=== PATIENT | male | born 1930 | race Caucasian/White ===

== ENCOUNTER → 2016-09-16 | Outpatient (CLI) | payer MEDICARE, OTHER ==
[~2016-09-16] MED LIST: ASPI1TAB69 PO; ASPI81TA82 PO; BISA5TAB PO; CARV3.125 PO; CENTTAB9 PO; COUM5TAB PO; DULC5TAB PO; ENOX120P SQ; GABA300C3 PO; HYDR-3534 PO; LISI2.5T3 PO; LOVA40TA PO; MEVA40TA PO; MISC1CAP PO; MOBI15TA PO; ZOLP10TA3 PO
== END ==
LOC: CLAB 11:00
PROVIDERS: ATTEND Internal Medicine
DX: R06.00 Dyspnea, unspecified (principal)
CPT/HCPCS: 36415; 82565; 84520

== ENCOUNTER 2016-09-19 15:34 | Inpatient (IN) | payer MEDICARE, OTHER ==
[~2016-09-19] VITALS: Ht 185.4 cm; Wt 132.9 kg
[~2016-09-19 15:34] MED LIST changes: -ASPI1TAB69 PO; -CARV3.125 PO; -COUM5TAB PO; -DULC5TAB PO; -ENOX120P SQ; -LISI2.5T3 PO; -LOVA40TA PO
[2016-09-19 15:36] VITALS: BP 165/91; PULSE 88; RESP 24; O2SAT 94
--- NOTE | 2016-09-19 15:58 | PD ---
HPI Chief Complaint: Respiratory Symptoms Time Seen by Provider: 15:55 Travel History International Travel<30 days: No Contact w/Intl Traveler<30days: No Traveled to known affect area: No History of Present Illness HPI 85-year-old male presents to the emergency department stating is here to be admitted for pulmonary embolism. Patient has recently had 2 week history of increased shortness of breath with exertion without pain. Patient has had echocardiogram, as well as stress test with no significant findings. He was then referred to Dr. Kat, the project manager/design manager, who did pulmonary function tests which were again reported unremarkable, and was then scheduled for CTA. Patient had a CT earlier this afternoon at 2:30, and was told to come to the emergency department for admission for PE. Patient currently has no pain, fever , chest pain, palpitations, or other constitutional symptoms. Patient remained short of breath with exertion. He denies cough or wheezing. He denies acute lower extremity edema or cramps. Patient has no known drug allergies. Patient does take aspirin 81 mg daily. PFSH Past Medical History Hx Anticoagulant Therapy: Yes (81mg aspirin) High Cholesterol: Yes Diminished Hearing: No Past Surgical History Body Medical Devices: PERIPHERAL NEUROPATHY Social History Alcohol Use: No Tobacco Use: No Allergies-Medications (Allergen,Severity, Reaction): Coded Allergies: No Known Allergies (Verified , 09/19/16) Reported Meds & Prescriptions Reported Meds & Active Scripts Active Reported Lovastatin 40 Mg Tab 40 Mg PO HS Lortab (Hydrocodone-Acetaminophen) 7.5-325 Mg Tab 1 Tab PO TID PRN Dulcolax DR (Bisacodyl) 5 Mg Tabdr 5 Mg PO DAILY PRN Aspirin 81 Mg Tabdr 81 Mg PO DAILY Review of Systems Except as stated in HPI: all other systems reviewed are Neg General / Constitutional: No: Fever Eyes: No: Visual changes HENT: No: Headaches Cardiovascular: No: Chest Pain or Discomfort Respiratory: Positive: Shortness of Breath (see history present illness.) Gastrointestinal: No: Abdominal Pain Genitourinary: No: Dysuria Musculoskeletal: No: Pain Skin: No Rash Neurologic: No: Weakness Psychiatric: No: Depression Endocrine: No: Polydipsia Hematologic/Lymphatic: No: Easy Bruising Physical Exam Narrative GENERAL: Patient appears in no acute distress. SKIN: Warm and dry. Normal color. Normal turgor. HEAD: Atraumatic. Normocephalic. EYES: Pupils equal and round. No scleral icterus. No injection or drainage. ENT: No nasal bleeding or discharge. Mucous membranes pink and moist. NECK: Trachea midline. No JVD. Supple nontender. CARDIOVASCULAR: Regular rate and rhythm. No murmurs gallops or rubs. RESPIRATORY: No accessory muscle use. Clear to auscultation. Breath sounds equal bilaterally. GASTROINTESTINAL: Abdomen soft, non-tender, nondistended. Hepatic and splenic margins not palpable. MUSCULOSKELETAL: Extremities without clubbing, cyanosis, or edema. No obvious deformities. NEUROLOGICAL: Awake and alert. No obvious cranial nerve deficits. Motor grossly within normal limits. Five out of 5 muscle strength in the arms and legs. Normal speech. PSYCHIATRIC: Appropriate mood and affect; insight and judgment normal. Data Data Last Documented VS Vital Signs Date Time Temp Pulse Resp B/P Pulse Ox O2 Delivery O2 Flow Rate FiO2 09/19/16 16:01 24 95 Nasal Cannula 2 09/19/16 15:48 75 09/19/16 15:36 165/91 Orders Complete Blood Count With Diff (09/19/16 15:58) Comprehensive Metabolic Panel (09/19/16 15:58) Prothrombin Time / Inr (Pt) (09/19/16 15:58) Act Partial Throm Time (Ptt) (09/19/16 15:58) Iv Access Insert/Monitor (09/19/16 15:58) Ecg Monitoring (09/19/16 15:58) Oximetry (09/19/16 15:58) Sodium Chloride 0.9% Flush (Ns Flush) (09/19/16 16:00) Electrocardiogram (09/19/16 15:58) Us Leg Venous Doppler Bilat (09/19/16 16:24) Diet Heart Healthy (09/19/16 Dinner) Admit Order (Ed Use Only) (09/19/16 17:07) Consult Pulmonology (09/19/16 ) Place In Observation (09/19/16 ) Vital Signs (Adult) Q4H (09/19/16 17:07) Activity Oob With Assistance (09/19/16 17:07) Bedside Glucose HOLDEN.AC&HS (09/19/16 17:07) ^ Library Information Technician / Telemetry .CONTINUOUS (09/19/16 17:07) Sodium Chloride 0.9% Flush (Ns Flush) (09/19/16 17:15) Sodium Chloride 0.9% Flush (Ns Flush) (09/19/16 21:00) Acetaminophen (Tylenol) (09/19/16 17:15) Ondansetron Inj (Zofran Inj) (09/19/16 17:15) Prochlorperazine Supp (Compazine Supp) (09/19/16 17:15) Bisacodyl Supp (Dulcolax Supp) (09/19/16 17:15) Magnesium Hydroxide Liq (Milk Of Magnesi (09/19/16 17:15) Sennosides (Senokot) (09/19/16 17:15) Basic Metabolic Panel (Bmp) (09/20/16 06:00) Complete Blood Count With Diff (09/20/16 06:00) Resp Oxygen [place] C Titrat 1-4 L (09/19/16 ) Pt Request For Service (09/19/16 17:07) Case Management Consult (09/19/16 17:07) MDM Medical Decision Making Medical Screen Exam Complete: Yes Emergency Medical Condition: Yes Differential Diagnosis Exertional dyspnea. Short of breath. Pulmonary embolism. Narrative Course Patient is medically stable upon exam. Call was placed to Dr. Kat, the project manager/design manager. 1420 hrs. call was returned by Dr. Kat, the patient was discussed. Labs ordered as requested. Rectal guaiac is negative. Dr. Kat would like the patient admitted, and have Dopplers done on both lower extremities as well as plans for 2-D echo to rule out pulmonary hypertension. He states no Lovenox or heparin need to be started yet. He states he will be in to see the patient approximately 30 minutes. 1425 hrs. call was placed to the hospitalist for admission. Diagnosis Primary Impression: Exertional dyspnea Additional Impression: Pulmonary embolism Qualified Code: I26.99 - Other pulmonary embolism without acute cor pulmonale , unspecified chronicity Admitting Information Admitting Physician Requests: Admit Condition: Stable Saul Juarez Sep 19, 2016 15:58
[2016-09-19] MEDS ORDERED: SODIUM CHLORIDE 0.9% FLUSH 5 ML FLUSH IVF PRN (16:00)
[2016-09-19 16:01] VITALS: RESP 24; O2SAT 95
[2016-09-19] MEDS ORDERED: SODIUM CHLORIDE 0.9% FLUSH 5 ML FLUSH FLUSH PRN (17:15)
[2016-09-19] MEDS ORDERED: SENNOSIDES 8.6 MG TAB PO PRN (17:15)
[2016-09-19] MEDS ORDERED: ONDANSETRON HCL 4 MG/2 ML VIAL IVP PRN (17:15)
[2016-09-19] MEDS ORDERED: PROCHLORPERAZINE 25 MG SUPP PR PRN (17:15)
[2016-09-19] MEDS ORDERED: ACETAMINOPHEN 325 MG TAB PO PRN (17:15)
[2016-09-19] MEDS ORDERED: MAGNESIUM HYDROXIDE SUSP 30 ML CUP PO PRN (17:15)
[2016-09-19] MEDS ORDERED: BISACODYL 10 MG SUPP PR PRN (17:15)
[2016-09-19] MEDS ORDERED: cloNIDine HCL 0.1 MG TAB PO PRN (17:30)
[2016-09-19] MEDS ORDERED: ENALAPRILAT 2.5 MG/2 ML VIAL IV PUSH PRN (17:30)
[2016-09-19] MEDS ORDERED: DULC5TAB PO (17:50)
[2016-09-19] MEDS ORDERED: ASPI1TAB69 PO (17:50)
[2016-09-19] MEDS ORDERED: LOVA40TA PO (17:50)
[2016-09-19] MEDS ORDERED: HYDR-3534 PO (17:50)
--- NOTE | 2016-09-19 17:50 | RADRPT ---
EXAM DATE/TIME: 09/19/2016 17:14 [facility] COMPARISON: No previous studies available for comparison. INDICATIONS : Shortness of breath. Pulmonary embolism. MEDICAL HISTORY : Hypercholesterolemia. Peripheral neuropathy. Shortness of breath. Anticoagul ant therapy, Aspirin 81mg. SURGICAL HISTORY : Cholecystectomy. Back surgery. Lumbar discectomies. ENCOUNTER: Initial ACUITY: 1 day PAIN SCORE: 0/10 LOCATION: Bilateral leg. TECHNIQUE: Venous ultrasound of the left and right leg was performed from the inguinal ligament t o the proximal calf. Real-time, color Doppler and spectral tracing, compression and augmentation david hniques were used. FINDINGS: RIGHT LEG: There is normal compressibility of the deep venous system from the inguinal region to the proximal calf. No echogenic clot is seen in the lumen of the common femoral, femoral, popliteal, and posterior tibial veins. There is a normal response of the venous system to proximal and distal augmentation and respiration. LEFT LEG: There is normal compressibility of the deep venous system from the inguinal region to t he proximal calf. No echogenic clot is seen in the lumen of the common femoral, femoral, popliteal, and posterior tibial veins. There is a normal response of the venous system to proximal and distal a ugmentation and respiration. CONCLUSION: Negative for deep venous thrombosis. Jose M Saleem MD FACR on September 19, 2016 at 17:48 Board Certified Radiologist. This report was verified electronically.
[2016-09-19 19:03] VITALS: BP 125/74; PULSE 65; RESP 17; O2SAT 95
--- NOTE | 2016-09-19 19:04 | HHI.HP ---
[facility] Primary Care Physician Ria Musa MD Admission Diagnosis Pulmonary Embolism Diagnoses: Chief Complaint: shortness of breath Travel History International Travel<30 Days: No Contact w/Intl Traveler <30 Da: No Traveled to Known Affected Are: No History of Present Illness The patient is a very pleasant 85 yo male with PMH of hyperlipidemia, sleep apnea, insomnia, lumbar spinal stenosis with neurogenic claudication, obesity with BMI of 37.8. The patient complains of increasing shortness of breath over the past 2 weeks. He was seen by cardiology has done a recent echo and was told he doesn't have any cardiac problems. He was seen Dr. Kat pulmonology as outpatient, he had a normal pulmonary function test, and was sent to do a CTA. Patient had a CTA done today, was found with pulmonary embolism and was sent to the emergency room for further evaluation. Discussed with Dr. Kat's also came to see the patient in the emergency room, and with his primary care doctor Dr Garber. The patient is not using oxygen at home. His oxygen saturation on admission was 92% room air. He is satting well on 2 L nasal cannula at this time. Says he used to have CPAP at night, however he has not use it in a long time, he plans for a sleep study by Dr Martinez. Denies associated chest pain, nausea. No vomiting or diarrhea. Has constipation on and off. Shortness of breath is at rest and as well as on exertion, getting worse over the past 2 weeks. He has associated nonproductive cough on/off. No fever or chills. No wheezing. He denies having any swelling of his legs or erythema/rash. He also complaints of insomnia. Says he has severe lower back pain and he gets sweating at times when he has lower back pain. Says he takes norco for it. Review of Systems Constitutional: COMPLAINS OF: Diaphoretic episodes (when he has back pain ), DENIES: Fever, Chills, Change in appetite Endocrine: DENIES: Heat/cold intolerance Eyes: DENIES: Blurred vision, Eye pain Ears, nose, mouth, throat: DENIES: Nasal discharge, Oral lesions Respiratory: COMPLAINS OF: Cough (nonproductive cough ), Shortness of breath, DENIES: Apneas, Snoring, Wheezing, Hemoptysis, Sputum production Cardiovascular: DENIES: Chest pain, Palpitations, Syncope, Dyspnea on Exertion , PND, Lower Extremity Edema, Orthopnea, Claudication Gastrointestinal: DENIES: Abdominal pain, Black stools, Bloody stools, Constipation, Diarrhea, Nausea, Vomiting, Difficulty Swallowing, Anorexia Genitourinary: DENIES: Urgency, Hematuria, Dysuria Musculoskeletal: COMPLAINS OF: Back pain (has severe back pain chronic ) Integumentary: DENIES: Rash Neurologic: DENIES: Abnormal gait, Headache, Localized weakness, Paresthesias, Seizures, Speech Problems, Tremor, Poor Balance Psychiatric: DENIES: Anxiety, Depression Past Family Social History Past Medical History Hyperlipidemia, sleep apnea, insomnia, lumbar spinal stenosis with neurogenic claudication, obesity with BMI of 37.8. Past Surgical History Cholecystectomy 1990 Back surgery in 1991 Right knee surgery in 1996 Left knee surgery 1997 Several epidural steroid injections Precancerous lesion removed from the left side upper chest by dermatology Reported Medications Reported Meds & Active Scripts Active Reported Lovastatin 40 Mg Tab 40 Mg PO HS Lortab (Hydrocodone-Acetaminophen) 7.5-325 Mg Tab 1 Tab PO TID PRN Dulcolax DR (Bisacodyl) 5 Mg Tabdr 5 Mg PO DAILY PRN Aspirin 81 Mg Tabdr 81 Mg PO DAILY Allergies: Coded Allergies: No Known Allergies (Verified , 09/19/16) Family History Father at the age of 88, used to smoke and drink however he was healthy. Mother at the age of 98 Siblings one brother had lung cancer Social History Denies alcohol use, tobacco use or illicit drug use. Physical Exam Vital Signs Vital Signs Date Time Temp Pulse Resp B/P Pulse Ox O2 Delivery O2 Flow Rate FiO2 09/19/16 16:01 24 95 Nasal Cannula 2 09/19/16 15:48 75 24 95 Nasal Cannula 2 09/19/16 15:36 88 24 165/91 94 Room Air Physical Exam GENERAL: This is a very pleasant 85-year-old male, appearing younger than stated age, well-nourished, well-developed patient, in no apparent distress. BMI of 37.8. SKIN: No rashes, ecchymoses or lesions. Cool and dry. HEAD: Atraumatic. Normocephalic. No temporal or scalp tenderness. EYES: Pupils equal round and reactive. Extraocular motions intact. No scleral icterus. No injection or drainage. ENT: Nose without bleeding, purulent drainage or septal hematoma. Throat without erythema, tonsillar hypertrophy or exudate. Uvula midline. Airway patent. NECK: Trachea midline. No JVD or lymphadenopathy. Supple, nontender, no meningeal signs. CARDIOVASCULAR: Regular rate and rhythm without murmurs, gallops, or rubs. RESPIRATORY: Clear to auscultation. Breath sounds equal bilaterally. No wheezes , rales, or rhonchi. GASTROINTESTINAL: Abdomen soft, obese, non-tender, nondistended. No hepato- splenomegaly, or palpable masses. No guarding. MUSCULOSKELETAL: Extremities without clubbing, cyanosis, or edema. No joint tenderness, effusion, or edema noted. No calf tenderness. Negative Homans sign bilaterally. NEUROLOGICAL: Awake and alert. Cranial nerves II through XII intact. Motor and sensory grossly within normal limits. Five out of 5 muscle strength in all muscle groups. Normal speech. Imaging Last Impressions Lower Extremity Ultrasound 09/19/16 1624 Signed Impressions: Service Date/Time: Monday, September 19, 2016 17:14 - CONCLUSION: Negative for deep venous thrombosis. Jose M Saleem MD FACR Assessment and Plan Assessment and Plan The patient is a very pleasant 85 yo male with PMH of hyperlipidemia, sleep apnea, insomnia, lumbar spinal stenosis with neurogenic claudication, obesity with BMI of 37.8 with sob, was sent by his pulm Dr Kat after CTA as OP showed PE: PE unknown etiology No family h/o clotting disorder, has a h/o precancerous lesion on his left chest surgically removed by derm per Dr Moscoso his PCP Consult his pulm Dr Kat, appreciate recommendations FOBT in the ED negative Start anticoagulation with Lovenox 130 mg IV BID BL LE Doppler US reviewed and negative for DVT Will consult Dr Jackson hem/onc specialist for further recommendations and work up Check coags, protein C&S, check APL ab , lupus anticoagulant, cardiolipin antibody Might consider malignancy work up with CT abd per Dr Kat. Will appreciate hem/onc recommendations. Will check 2D ECHO to r/o pulm HTN Other chronic medical problems stable at this time will resume home meds: hyperlipidemia, sleep apnea, insomnia, lumbar spinal stenosis with neurogenic claudication, obesity with BMI of 37.8. DVT ppx lovenox Discussed Condition With The patient, family at bedside Discussed with the ED physician Hospital with Dr. Estevez his senior technical writer Discussed with Dr. Jarrett his primary care physician Physician Certification 2 Midnight Certification Type: Admission for Inpatient Services Order for Inpatient Services The services are ordered in accordance with Medicare regulations or non- Medicare payer requirements, as applicable. In the case of services not specified as inpatient-only, they are appropriately provided as inpatient services in accordance with the 2-midnight benchmark. Estimated LOS (days): 3 days is the estimated time the patient will need to remain in the hospital, assuming treatment plan goals are met and no additional complications. Post-Hospital Plan: Home Alaina Jones MD Sep 19, 2016 19:04
[2016-09-19] MEDS ORDERED: ACETAMINOPHEN/HYDROcodone 325 MG/7.5 MG TAB PO PRN (19:15)
[2016-09-19] MEDS ORDERED: BISACODYL EC 5 MG TABEC PO PRN (19:15)
[2016-09-19 19:59] LABS: APTT (PATIENT) 27.8 SEC (24.3-30.1); PROTHROMBIN TIME - PATIENT 11.3 SEC (9.8-11.6)
[2016-09-19 20:00] VITALS: O2SAT 95
[2016-09-19] MEDS ORDERED: ENOXAPARIN SODIUM 150 MG/ML SYRINGE SQ SCH (20:00)
[2016-09-19 20:02] LABS: AUTOMATED NEUTROPHIL # 5.3 TH/MM3 (1.8-7.7); BASOPHIL # 0.1 TH/MM3 (0-0.2); BASOPHIL % 0.7 % (0.0-2.0); EOSINOPHIL # 0.1 TH/MM3 (0-0.4); EOSINOPHIL % 1.1 % (0.0-4.0); HEMATOCRIT 49.8 % (39.0-51.0); HEMO FLAGS DIFF FINAL; LYMPH % 22.6 % (9.0-44.0); LYMPHOCYTE # 1.8 TH/MM3 (1.0-4.8); MEAN CELL VOLUME 90.4 FL (80.0-100.0); MEAN CORPUSCULAR HEMOGLOBIN 30.8 PG (27.0-34.0); MEAN CORPUSCULAR HGB CONC 34.1 % (32.0-36.0); MONO % 9.5 % (0.0-8.0); NEUT % 66.1 % (16.0-70.0); PLATELET COUNT 232 TH/MM3 (150-450); RED BLOOD COUNT 5.51 MIL/MM3 (4.50-5.90); RED CELL DISTRIBUTION WIDTH 12.9 % (11.6-17.2)
[2016-09-19 20:07] LABS: ANION GAP 10 MEQ/L (5-15); AST (GOT) 19 U/L (15-37); BICARBONATE 29.9 MEQ/L (21.0-32.0); BLOOD UREA NITROGEN 15 MG/DL (7-18); CHLORIDE 97 MEQ/L (98-107); GLOMERULAR FILTRATION RATE 66 ML/MIN (>89); POTASSIUM 4.1 MEQ/L (3.5-5.1); SODIUM (NA) 137 MEQ/L (136-145)
[2016-09-19 20:10] LABS: ALKALINE PHOSPHATASE 64 U/L (45-117); ALT (GPT) 30 U/L (12-78)
[2016-09-19] MEDS ORDERED: ENOXAPARIN SODIUM 120 MG/0.8 ML SYRINGE SQ SCH (21:00)
[2016-09-19] MEDS: CARVEDILOL 3.125 MG TAB PO SCH (21:04)
[2016-09-19] MEDS: PRAVASTATIN SOD 40 MG TAB PO SCH (21:04)
[2016-09-19] MEDS: SODIUM CHLORIDE 0.9% FLUSH 5 ML FLUSH FLUSH SCH (21:20)
[2016-09-19 21:52] VITALS: PULSE 69
[2016-09-20] VITALS (10 sets, daily range): BP systolic 111–152; BP diastolic 58–84; PULSE 56–84; RESP 16–20; TEMP 97.4–98.7; O2SAT 92–97
[2016-09-20] MEDS: ZOLPIDEM TARTRATE 10 MG TAB PO PRN (01:10)
[2016-09-20 06:48] LABS: BASOPHIL % 0.6 % (0.0-2.0); EOSINOPHIL # 0.1 TH/MM3 (0-0.4); EOSINOPHIL % 1.4 % (0.0-4.0); HEMO FLAGS DIFF FINAL; LYMPH % 33.1 % (9.0-44.0); LYMPHOCYTE # 2.5 TH/MM3 (1.0-4.8); MEAN CELL VOLUME 90.4 FL (80.0-100.0); MEAN CORPUSCULAR HEMOGLOBIN 30.3 PG (27.0-34.0); MEAN CORPUSCULAR HGB CONC 33.5 % (32.0-36.0); MONO % 11.2 % (0.0-8.0); NEUT % 53.7 % (16.0-70.0); PLATELET COUNT 212 TH/MM3 (150-450); RED CELL DISTRIBUTION WIDTH 12.8 % (11.6-17.2); WHITE BLOOD COUNT 7.5 TH/MM3 (4.0-11.0)
[2016-09-20 07:20] LABS: BICARBONATE 31.4 MEQ/L (21.0-32.0); POTASSIUM 4.1 MEQ/L (3.5-5.1)
[2016-09-20] MEDS: ASPIRIN EC 81 MG TABEC PO SCH (07:53)
[2016-09-20] MEDS: ENOXAPARIN SODIUM 120 MG/0.8 ML SYRINGE SQ SCH ×2 (07:53→21:17)
[2016-09-20] MEDS: CARVEDILOL 3.125 MG TAB PO SCH ×2 (07:54→21:17)
[2016-09-20] MEDS: SODIUM CHLORIDE 0.9% FLUSH 5 ML FLUSH FLUSH SCH ×2 (07:54→21:17)
--- NOTE | 2016-09-20 09:57 | HHI.PR ---
Subjective Remarks Patient still with sob. SOb is with exertion, when he walked to the bath He was also diaphoretic in the morning. Saus he had lower back pain at that time. He denies having any chest pain . He has constipatin , last BM was 2 days ago. No palpitations, n/v/d. No headache. No pain in his legs. Objective Vitals Vital Signs Date Time Temp Pulse Resp B/P Pulse Ox O2 Delivery O2 Flow Rate FiO2 09/20/16 08:01 96 Nasal Cannula 2.00 09/20/16 08:00 98.2 84 20 150/84 97 09/20/16 04:00 97.9 64 20 138/76 94 09/20/16 00:32 92 09/20/16 00:00 97.8 68 20 127/74 93 09/19/16 21:52 69 09/19/16 21:00 Nasal Cannula 2.00 09/19/16 20:00 95 Nasal Cannula 3.00 09/19/16 19:03 64 17 95 Nasal Cannula 3 09/19/16 19:03 65 17 125/74 95 Nasal Cannula 3 09/19/16 16:01 24 95 Nasal Cannula 2 09/19/16 15:48 75 24 95 Nasal Cannula 2 09/19/16 15:36 88 24 165/91 94 Room Air I/O 09/19/16 09/19/16 09/19/16 09/20/16 09/20/16 09/20/16 07:00 15:00 23:00 07:00 15:00 23:00 Output Total 400 ml Balance -400 ml Output Urine Total 400 ml Result Diagram: 09/20/16 0546 09/20/16 0546 Imaging Last Impressions Lower Extremity Ultrasound 09/19/16 1624 Signed Impressions: Service Date/Time: Monday, September 19, 2016 17:14 - CONCLUSION: Negative for deep venous thrombosis. Jose M Saleem MD FACR Objective Remarks GENERAL: This is a very pleasant 85-year-old male, appearing younger than stated age, well-nourished, well-developed patient, in no apparent distress. BMI of 37.8. SKIN: No rashes, ecchymoses or lesions. Cool and dry. HEAD: Atraumatic. Normocephalic. No temporal or scalp tenderness. EYES: Pupils equal round and reactive. Extraocular motions intact. No scleral icterus. No injection or drainage. ENT: Nose without bleeding, purulent drainage or septal hematoma. Throat without erythema, tonsillar hypertrophy or exudate. Uvula midline. Airway patent. NECK: Trachea midline. No JVD or lymphadenopathy. Supple, nontender, no meningeal signs. CARDIOVASCULAR: Regular rate and rhythm without murmurs, gallops, or rubs. RESPIRATORY: Clear to auscultation. Breath sounds equal bilaterally. No wheezes , rales, or rhonchi. GASTROINTESTINAL: Abdomen soft, obese, non-tender, nondistended. No hepato- splenomegaly, or palpable masses. No guarding. MUSCULOSKELETAL: Extremities without clubbing, cyanosis, or edema. No joint tenderness, effusion, or edema noted. No calf tenderness. Negative Homans sign bilaterally. NEUROLOGICAL: Awake and alert. Cranial nerves II through XII intact. Motor and sensory grossly within normal limits. Five out of 5 muscle strength in all muscle groups. Normal speech. A/P Assessment and Plan The patient is a very pleasant 85 yo male with PMH of hyperlipidemia, sleep apnea, insomnia, lumbar spinal stenosis with neurogenic claudication, obesity with BMI of 37.8 with sob, was sent by his pulm Dr Kat after CTA as OP showed PE: PE unknown etiology No family h/o clotting disorder, has a h/o precancerous lesion on his left chest surgically removed by derm per Dr Moscoso his PCP Consult his pulm Dr Kat, appreciate recommendations FOBT in the ED negative Start anticoagulation with Lovenox 130 mg IV BID BL LE Doppler US reviewed and negative for DVT Will consult Dr Jackson hem/onc specialist for further recommendations and work up. Appreciate recommendations. Check coags, protein C&S, check APL ab , lupus anticoagulant, cardiolipin antibody Might consider malignancy work up with CT abd per Dr Kat. Will appreciate hem/onc recommendations. 2D ECHO to r/o pulm HTN pending. Patient diaphoretic at times. Will check trop. and EKG. Will consult Dr Babcock his cardiology Other chronic medical problems stable at this time will resume home meds: hyperlipidemia, sleep apnea, insomnia, lumbar spinal stenosis with neurogenic claudication, obesity with BMI of 37.8. DVT ppx lovenox Discussed Condition With The patient, nurse Discharge Planning Dc when impropved and cl;eared by consultants. Cosma,Alaina MD Sep 20, 2016 09:57
--- NOTE | 2016-09-20 10:49 | MB ---
cc: ALAINA JONES MD,JOSE M CORONA,CHASTITY Hernandez M.D. DATE OF CONSULTATION: 09/19/2016 REASON FOR CONSULTATION: New patient consultative summary. DATE OF : [address] Al[address] Jones[address] Dr. Jose M Kat. CHIEF COMPLAINT Dr. Jones requested consultation for Mr. Estevez regarding newly diagnosed unprovoked pulmonary embolism. HISTORY OF PRESENT ILLNESS Mr. Estevez i1s an 85-year-old man well-known patient to Dr. Ria Musa. He was undergoing evaluation for shortness of breath over several months' time. PAST MEDICAL HISTORY: He has past history of hyperlipidemia. sleep apnea insomnia lumbar stenosis with chronic back pain Obesity. HISTORY OF PRESENT ILLNESS: He was spending a lot of time in his recliner about five hours per day because of his back pain. Over the last 2 months. He was actually on fentanyl patch at [address] Manning. He had previously been taking Lortab twice a day for his chronic back pain. He had taking himself off the patch on the day of his presentation to the hospital. He was seen by Dr. Kat for his increasing shortness of breath. He was active in traveling. In August they travel to [place] and subsequently [place] and back, they took a 3-week cruise in August. He was using a scooter to get around. This was in part due to his shortness of breath. He also has increased weight. A CT angiogram was performed to evaluate for shortness of breath and was found to have pulmonary embolism. The case was discussed earlier with Dr. Kat as to the ideal anticoagulant therapy. He was referred to the emergency room for evaluation. He has chronic shortness of breath. He is unable to pinpoint when his shortness of breath worsened. His family members we believe it is over several months. Doppler ultrasound was performed in the emergency room that was negative for deep vein thromboses. He denies any bleeding. No melena or bright red blood per rectum. He is not prone to bleeding or bruising. He denies any cough. He has chronic nonsmoker, does not drink. He has gained weight to a point where his body mass index is quite high. PAST MEDICAL HISTORY: His past medical history, hyperlipidemia. Obesity sleep apnea insomnia lumbar stenosis neurogenic claudication. PAST SURGICAL HISTORY Cholecystectomy back surgery right knee surgery left knee surgery epidural injections not recently multiple colonoscopies every 5-yearS left upper chest wall skin excision. FAMILY HISTORY Mother at age 98 of old age. Father at 888. He has one brother had lung cancer. SOCIAL HISTORY: Social history is , lives with his . He denies any tobacco, alcohol or illicit drug use. ALLERGIES NO KNOWN DRUG ALLERGIES. MEDICATIONS: Medications from home lovastatin Lortab Dulcolax Aspirin 81 mg Fentanyl patch 50 mcg every 3 days was just discontinued today. PHYSICAL EXAMINATION VITAL SIGNS: Temperature not afebrile, heart rate 64, respiratory rate 17, blood pressure 125/74, saturation 94-95%. IN GENERAL: Mr Estevez is a well-developed obese man in no acute distress. He appears to have a gabino complexion. His pupils are reactive to light and accommodation. Oropharynx is clear. NECK: Neck is soft. No adenopathy. LUNGS: With no wheezing mild rhonchi. CARDIOVASCULAR SYSTEM: Exam reveals normal rate, rhythm. ABDOMEN: The abdomen is large and benign lower extremity with no edema. NEUROLOGIC: Neurological exam is nonfocal. LABORATORY DATA CBC is hemoglobin is 17, BUN and creatinine are normal. Liver functions are normal. ASSESSMENT/PLAN Mr. Estevez is an 85-year-old man with multiple medical problems described above. He has had increasing shortness of breath over months' time. Evaluation for shortness of breath included CT angiogram on outpatient basis shows a pulmonary embolism. Lengthy discussion with family about the possibility unprovoked deep vein thromboses. We did consider possibility of the length the time he spent in the recliner. Precipitating factor for deep vein thromboses and of venous thromboembolic event. He spent a great deal of time in the recliner. Furthermore, he has been on chronic pain medication with fentanyl patch 50 mcg. He was starting 50 mcg. He was not narcotic need but was not on fentanyl prior to that. He wishes to come off fentanyl and therefore stopped his medication today. He denies any swelling of the lower extremity. We discussed the ultrasound findings. We discussed options for anticoagulant therapy. The concern for using new oral anticoagulants is his weight. The new oral anticoagulants are less well studied in patients who are extremely obese with his body mass index. We discussed the risk and benefit anticoagulant therapy with Coumadin. He feels comfortable with this decision. The therapeutic effect of Coumadin is based on INR between 2-3. His is on Coumadin. He feels a certain comfort of being on anticoagulant therapy with Coumadin similar to his . Furthermore, he plans to monitor his Coumadin level on an outpatient basis with Dr. Ria Musa his primary physician. We discussed the mechanism action of Coumadin and in need to bridge with low-molecular weight heparin. We will start low-molecular weight heparin as soon as possible. Pharmacy was called. Nurse will be alerted of these need to start his anticoagulation. We will consult with child protective services social worker the ensure that his Lovenox dose could be administered. I insisted he could be discharged home and follow up with Dr. Ria Harper this week. His questions were answered to his satisfaction. MD MASOOD Garcia/mary ann /8:52 PM /10:29 AM
--- NOTE | 2016-09-20 10:51 | EKG ---
Date Performed: 09/19/2016 Time Performed: 16:14:04 PTAGE: 85 years EKG: Sinus rhythm WITH FIRST DEGREE AV BLOCK LOW QRS VOLTAGE IN PRECORDIAL LEADS MINIMAL VOLTAGE CRITERIA FOR LVH, CON SPONGE BUFFER NORMAL VARIANT POSSIBLE ANTERIOR MYOCARDIAL INFARCTION INFERIOR MYOCARDIAL INFARCTION ABNORMAL ECG Compared to prior tracing no significant change PREVIOUS TRACING : 07/11/2006 11.28 DOCTOR: Tim Doll Interpretating Date/Time 09/20/2016 10:46:30
--- NOTE | 2016-09-20 12:30 | PD.ONC.PN ---
Subjective Subjective Remarks Afebrile overnight. Patient resting comfortably. He denies pain. he states he is winded with exertion such as walking 20 steps, but comfortable sitting down. Objective Data Date Time Temp Pulse Resp B/P Pulse Ox O2 Delivery O2 Flow Rate FiO2 09/20/16 12:00 97.4 64 16 152/80 96 09/20/16 08:01 96 Nasal Cannula 2.00 09/20/16 08:00 98.2 84 20 150/84 97 09/20/16 07:54 Nasal Cannula 2.00 09/20/16 07:54 62 09/20/16 04:00 97.9 64 20 138/76 94 09/20/16 00:32 92 09/20/16 00:00 97.8 68 20 127/74 93 09/19/16 21:52 69 09/19/16 21:00 Nasal Cannula 2.00 09/19/16 20:00 95 Nasal Cannula 3.00 09/19/16 19:03 64 17 95 Nasal Cannula 3 09/19/16 19:03 65 17 125/74 95 Nasal Cannula 3 09/19/16 16:01 24 95 Nasal Cannula 2 09/19/16 15:48 75 24 95 Nasal Cannula 2 09/19/16 15:36 88 24 165/91 94 Room Air Result Diagram: 09/20/16 0546 09/20/16 0546 Laboratory Results Laboratory Tests Test 09/19/16 09/20/16 16:13 05:46 White Blood Count 8.0 TH/MM3 7.5 TH/MM3 Red Blood Count 5.51 MIL/MM3 5.20 MIL/MM3 Hemoglobin 17.0 GM/DL 15.8 GM/DL Hematocrit 49.8 % 47.0 % Mean Corpuscular Volume 90.4 FL 90.4 FL Mean Corpuscular Hemoglobin 30.8 PG 30.3 PG Mean Corpuscular Hemoglobin 34.1 % 33.5 % Concent Red Cell Distribution Width 12.9 % 12.8 % Platelet Count 232 TH/MM3 212 TH/MM3 Mean Platelet Volume 8.6 FL 8.4 FL Neutrophils (%) (Auto) 66.1 % 53.7 % Lymphocytes (%) (Auto) 22.6 % 33.1 % Monocytes (%) (Auto) 9.5 % 11.2 % Eosinophils (%) (Auto) 1.1 % 1.4 % Basophils (%) (Auto) 0.7 % 0.6 % Neutrophils # (Auto) 5.3 TH/MM3 4.0 TH/MM3 Lymphocytes # (Auto) 1.8 TH/MM3 2.5 TH/MM3 Monocytes # (Auto) 0.8 TH/MM3 0.8 TH/MM3 Eosinophils # (Auto) 0.1 TH/MM3 0.1 TH/MM3 Basophils # (Auto) 0.1 TH/MM3 0.0 TH/MM3 CBC Comment DIFF FINAL DIFF FINAL Differential Comment Prothrombin Time 11.3 SEC Prothromb Time International 1.0 RATIO Ratio Activated Partial 27.8 SEC Thromboplast Time Sodium Level 137 MEQ/L 140 MEQ/L Potassium Level 4.1 MEQ/L 4.1 MEQ/L Chloride Level 97 MEQ/L 101 MEQ/L Carbon Dioxide Level 29.9 MEQ/L 31.4 MEQ/L Anion Gap 10 MEQ/L 8 MEQ/L Blood Urea Nitrogen 15 MG/DL 17 MG/DL Creatinine 1.07 MG/DL 1.17 MG/DL Estimat Glomerular Filtration 66 ML/MIN 60 ML/MIN Rate Random Glucose 95 MG/DL 88 MG/DL Calcium Level 9.0 MG/DL 9.0 MG/DL Total Bilirubin 1.0 MG/DL Aspartate Amino Transf 19 U/L (AST/SGOT) Alanine Aminotransferase 30 U/L (ALT/SGPT) Alkaline Phosphatase 64 U/L Total Protein 7.7 GM/DL Albumin 3.6 GM/DL Troponin I LESS THAN 0.02 NG/ML Imaging Studies Last 24 hours Impressions Lower Extremity Ultrasound 09/19/16 1624 Signed Impressions: Service Date/Time: Monday, September 19, 2016 17:14 - CONCLUSION: Negative for deep venous thrombosis. Jose M Saleem MD FACR Administered Medications Medications (Trade) Dose Ordered Sig/Cherry Route PRN Reason Start Time Stop Time Status Last Admin Dose Admin IV Flush (NS Flush) 2 ml BID FLUSH 09/19/16 21:00 09/20/16 07:54 Carvedilol (Coreg) 3.125 mg Q12HR PO 09/19/16 21:00 09/20/16 07:54 Aspirin (Ecotrin Ec) 81 mg DAILY PO 09/20/16 09:00 09/20/16 07:53 Pravastatin Sodium (Pravachol) 40 mg HS PO 09/19/16 21:00 09/19/16 21:04 Zolpidem Tartrate (Ambien) 10 mg HS PRN PO insomnia 09/19/16 19:15 09/20/16 01:10 Enoxaparin Sodium (Lovenox Inj) 120 mg Q12H SQ 09/20/16 09:00 09/20/16 07:53 Objective Remarks GENERAL: Elderly female, sitting up in bed in nad. On 2L O2 via NC. SKIN: Warm and dry. HEAD: Normocephalic. EYES: No injection or drainage. NECK: Supple, trachea midline. CARDIOVASCULAR: Regular rate and rhythm RESPIRATORY: Breath sounds equal bilaterally. No accessory muscle use. GASTROINTESTINAL: Abdomen soft, non-tender, nondistended. EXTREMITIES: No cyanosis NEUROLOGICAL: No obvious focal deficit. Awake, alert, and oriented x3. Assessment/Plan Problem List: (1) Pulmonary embolism Status: Acute Plan: --on Lovenox --LE u/s negative for DVT Assessment 85y/o with newly diagnosed unprovoked pulmonary embolism. h/o sleep apnea insomnia lumbar stenosis with chronic back pain Obesity. Plan 1. clear for discharge 2. follow up with Dr. Musa outpatient for bridge to coumadin/monitoring of INR. Attending Statement The exam, history, and the medical decision-making described in the above note were completed with the assistance of the mid-level provider. I reviewed and agree with the findings presented. I attest that I had a [id number] encounter with the patient on the same day, and personally performed and documented my assessment and findings in the medical record. Pt seen and examined in PM, doing well, still SOB with activity, walking back from BR to bed. Noted ECHO , mild dilation RV, BNP NL. Pending CT abdomen, pt had taken his oral contrast. Tolerating Lovenox and Coumadin well. Plans to go to Dr. Burnett's clinic on Monday. Explained the bridge of LMWH to therapeutic INR. Problem Qualifiers (1) Pulmonary embolism: Qualified Code: I26.99 - Other pulmonary embolism without acute cor pulmonale, unspecified chronicity Anna Peters Sep 20, 2016 12:30 Melissa Jackson MD Sep 20, 2016 20:23
--- NOTE | 2016-09-20 13:39 | MB ---
cc: RONNY ZUNIGA R. STEVEN DATE OF CONSULTATION: 09/20/2016 HISTORY OF PRESENT ILLNESS Mr. Estevez is an 85-year-old white male whom I first on September 16 with dyspnea on exertion. Pulmonary functions revealed a mild restriction with normal diffusion and normal O2 saturations. Mr. Estevez is very overweight with a BMI about 40, 137 kg, and no prior pulmonary disease or cardiovascular disease. He has been seen by Dr. Babcock and is not felt to have significant cardiac disease. He had a recent nuclear scan which was negative and an echo without pulmonary hypertension and normal EF. However, in light of his obesity and progressive symptoms a CTA was performed as an outpatient and I got a call yesterday that he had pulmonary embolism in the right lung. He was admitted for further therapy. At the time of admission he was stable, continued to complain of dyspnea on exertion but was stable at rest. No chest pain. He has never had hemoptysis. PAST MEDICAL HISTORY 1. Probable obstructive sleep apnea. He has been seen by Dr. Bird in the past, but has not been using CPAP consistently. 2. Surgery on his back several times, has some degree of spinal stenosis. Continues to have chronic back pain. ALLERGIES None known. MEDICATIONS 1. Furosemide. 2. Carvedilol. 3. Zolpidem. 4. Hydrocodone p.r.n. 5. Lovastatin. 6. Fentanyl p.r.n. for pain. SOCIAL HISTORY , living with his . Never smoked. Does not drink alcohol. Has no animal exposures. REVIEW OF SYSTEMS Positive for dyspnea on exertion. No leg swelling. PHYSICAL EXAMINATION VITAL SIGNS: Blood pressure 120/88, pulse 90, temperature 97, respiratory rate 18. Sat 95% room in room air at rest. NECK: Neck veins are flat. CHEST: Clear. HEART: Regular rhythm. No harsh murmur. ABDOMEN: Very obese but soft, nontender. EXTREMITIES: No significant edema. No cyanosis or clubbing of the nail beds. DISCUSSION Mr. Estevez presents with a positive CTA. He also has two very small nodules which are not relevant to the current chief complaint but will be followed in the future. He will be admitted to the hospital. I have asked Dr. Jackson to see him to advise on anticoagulation. His obesity complicates that and he seems inclined to proceed with Coumadin in the long-term. We will begin him on Lovenox. I have ordered several blood assays including lupus anticoagulant, protein-S and protein-C. I think he should have an abdominal CT scan because we have no provoking cause for this other than his obesity and I would like to be sure he does not have an occult underlying abdominal malignancy, particularly since he has two small nodules in the lung. Further diagnostic and/or therapeutic intervention will depend on his response and ongoing clinical course. R. Jose M Kat MD RSW/BT /9:54 AM /1:22 PM
[2016-09-20] MEDS: WARFARIN SOD 5 MG TAB PO SCH (15:59)
[2016-09-20] MEDS ORDERED: DIATRIZOATE MEGLUM/DIATRIZOATE SOD 9 ML CUP PO ONE (16:15)
[2016-09-20 16:18] LABS: PROTHROMBIN TIME - PATIENT 11.5 SEC (9.8-11.6)
--- NOTE | 2016-09-20 19:00 | EC ---
Study Study Date:09/20/2016 STUDY CONCLUSIONS SUMMARY - Left ventricle: The cavity size was normal. Wall thickness was increased in a pattern of mild LVH. Systolic function was moderately reduced. The estimated ejection fraction was in the range of 35% to 40%. Wall motion was normal; there were no regional wall motion abnormalities. - Aortic valve: Trace regurgitation. Valve area: 0.94cm^2(VTI). Valve area: 0.87cm^2 (Vmax). - Right ventricle: The cavity size was mildly dilated. Wall thickness was normal. If LV function is below 40, please consider prescribing an ACEI or ARB or document rationale for non-use. PROCEDURE DATA STUDY STATUS: Elective. Procedure: Transthoracic echocardiography. Image quality was good. Scanning was performed from the parasternal, apical, and subcostal acoustic windows. Study completion: The patient tolerated the procedure well. Transthoracic echocardiography. M-mode, complete 2D, complete spectral Doppler, and color Doppler. Height: Height: 73in. Weight: Weight: 285.4lb. Body mass index: BMI: 37.7kg/m^2. Body surface area: BSA: 2.51m^2. Patient status: Inpatient. CARDIAC ANATOMY LEFT VENTRICLE: The cavity size was normal. Wall thickness was increased in a pattern of mild LVH. Systolic function was moderately reduced. The estimated ejection fraction was in the range of 35% to 40%. Wall motion was normal; there were no regional wall motion abnormalities. AORTIC VALVE: Trileaflet; normal thickness leaflets. Doppler: Transvalvular velocity was within the normal range. There was no stenosis. Trace regurgitation. Valve area: 0.94cm^2(VTI). Indexed valve area: 0.37cm^2/m^2 (VTI). Valve area: 0.87cm^2 (Vmax). Indexed valve area: 0.35cm^2/m^2 (Vmax). Mean gradient: 11mm Hg (S). Peak gradient: 19mm Hg (S). AORTA: Aortic root: The aortic root was normal in size. MITRAL VALVE: Structurally normal valve. Doppler: Transvalvular velocity was within the normal range. There was no evidence for stenosis. No regurgitation. LEFT ATRIUM: The atrium was normal in size. RIGHT VENTRICLE: The cavity size was mildly dilated. Wall thickness was normal. PULMONIC VALVE: Doppler: Transvalvular velocity was within the normal range. There was no evidence for stenosis. No regurgitation. TRICUSPID VALVE: Structurally normal valve. Doppler: Transvalvular velocity was within the normal range. No regurgitation. PULMONARY ARTERY: The main pulmonary artery was normal-sized. Systolic pressure was within the normal range. RIGHT ATRIUM: The atrium was normal in size. PERICARDIUM: There was no pericardial effusion. SYSTEMIC VEINS: Inferior vena cava: The vessel was normal in size. Patient weight: 285.4lb _Ejection fraction:_ 65-75% _Fractional shortening:_ 32% up to 5Kg 5-11.5Kg 11.6-22.9Kg 23-45Kg 45-57Kg Aortic Root 7-13 <17 13-22 17-27 17-27 LA diam 6-13 <23 24-38 33-47 37-40 RVID 10-17 7-15 7-15 7-18 8-17 LVIDd 12-22 <32 24-38 33-47 37-40 LVPW 2-4 3-6 5-7 6-8 7-8 IVS 2-4 3-6 5-7 6-8 7-8 BASIC MEASUREMENTS ADULT NORMAL Left ventricle LV internal dimension, ED, chordal *42.8 mm 43-52 level, PLAX LV internal dimension, ES, chordal 36.4 mm 23-38 level, PLAX Fractional shortening, chordal level, *15 % >29 PLAX LV posterior wall thickness, ED 10.9 mm IVS/LVPW ratio, ED 1.01 <1.3 Ventricular septum Septal thickness, ED 11 mm Aorta Root diameter, ED 39 mm Left atrium Anterior-posterior dimension 37 mm Anterior-posterior dimension index 1.47 cm/m^2 <2.2 DOPPLER MEASUREMENTS ADULT NORMAL Aortic valve Peak velocity, S 216 cm/s Mean velocity, S 149 cm/s VTI, S 41 cm Mean gradient, S 11 mm Hg Peak gradient, S 19 mm Hg Valve area, VTI 0.94 cm^2 Valve area index, VTI 0.37 cm^2/m^2 Valve area, Vmax 0.87 cm^2 Valve area index, Vmax 0.35 cm^2/m^2 Mitral valve Peak E-wave velocity 47.4 cm/s Peak A-wave velocity 79 cm/s Peak E/A ratio 0.6 Pulmonic valve Peak velocity, S 64.7 cm/s LEGEND: Mean values are shown as u=mean value. Asterisk (*) schwartz values outside specified normal range. Prepared and signed by Delfino Pate [id number]
[2016-09-20] MEDS: PRAVASTATIN SOD 40 MG TAB PO SCH (21:16)
[2016-09-21] MEDS ORDERED: IOHEXOL 350 MG/ML 10 ML VIAL (for RAD DIAG) IV ONE (00:37)
[2016-09-21] MEDS: ZOLPIDEM TARTRATE 10 MG TAB PO PRN (01:08)
--- NOTE | 2016-09-21 01:48 | RADRPT ---
EXAM DATE/TIME: 09/21/2016 00:23 [facility] COMPARISON: No previous studies available for comparison. INDICATIONS : Unprovoked PE, evaluate for occult carcinoma. IV CONTRAST: 70 cc Omnipaque 350 (iohexol) IV ORAL CONTRAST: Prescribed oral contrast ingested. RADIATION DOSE: 26.35 CTDIvol (mGy) MEDICAL HISTORY : Cardiovascular disease. SURGICAL HISTORY : Cholecystectomy. ENCOUNTER: Initial ACUITY: 2 days PAIN SCALE: 0/10 LOCATION: abdomen TECHNIQUE: Volumetric scanning of the abdomen and pelvis was performed. Using automated exposure control and ad justment of the mA and/or kV according to patient size, radiation dose was kept as low as reasonably achievable to obtain optimal diagnostic quality images. FINDINGS: LOWER LUNGS: The visualized lower lungs are clear. LIVER: Homogeneous density without lesion. There is no dilation of the biliary tree. Gallbladder surgically absent.. SPLEEN: Normal size without lesion. PANCREAS: Within normal limits. KIDNEYS: Tiny bilateral cysts. No suspicious mass, stone or hydronephrosis. ADRENAL GLANDS: Within normal limits. VASCULAR: There is no aortic aneurysm. BOWEL/MESENTERY: Small hiatal hernia. Bowel structures otherwise unremarkable ABDOMINAL WALL: Within normal limits. RETROPERITONEUM: There is no lymphadenopathy. BLADDER: No wall thickening or mass. REPRODUCTIVE: Within normal limits. INGUINAL: There is no lymphadenopathy or hernia. MUSCULOSKELETAL: Within normal limits for patient age. CONCLUSION: No suspicious CT findings in the abdomen or pelvis. Van Burris MD on September 21, 2016 at 1:43 Board Certified Radiologist. This report was verified electronically.
[2016-09-21 04:24] VITALS: BP 104/62; PULSE 68; RESP 18; TEMP 98.8; O2SAT 96
--- NOTE | 2016-09-21 07:25 | MB ---
cc: FABIAN BABCOCK M.D.RONNY DATE OF CONSULTATION: 09/20/2016 HISTORY OF PRESENT ILLNESS Thank you Dr. 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 The patient presented with marked shortness of breath initially on 07/19/2016. At that time he had a nuclear stress test and denied chest pain, edema, etc. He had an echo that suggested inferior wall hypokinesis. He underwent nuclear stress testing which was negative and underwent later a pulmonary function test which was negative. He saw Dr. Jose M Kat who ordered a CTA and was found to have a pulmonary embolism. He is currently being anticoagulated. He denies any chest pain but does admit to shortness of breath. PAST MEDICAL HISTORY 1. COPD. 2. Back surgery with some degree of spinal stenosis. FAMILY HISTORY Noncontributory with mother and father being . Sibling had lung cancer. MEDICATIONS 1. Aspirin. 3. Gabapentin. 4. Lovastatin. 5. Dulcolax. SOCIAL HISTORY , lives with his . Never smoked. Does not drink alcohol. REVIEW OF SYSTEMS Positive shortness of breath on exertion. No leg swelling. The remainder of a 12-point review of systems is negative. PHYSICAL EXAMINATION VITAL SIGNS: Pulse 66, blood pressure 123/68, respirations 20. Obese mild sob HEENT: Eyes show no xanthelasma. Mouth shows no cyanosis or pallor. NECK: No JVD. HEART: Two heart sounds. No murmurs. CHEST: Clear. ABDOMEN: Soft. No hepatosplenomegaly. EXTREMITIES: Legs reveal no evidence of edema. NEUROLOGIC: Grossly intact. LABORATORY TESTS White count 7.5, hemoglobin 15.8, MCV 90.4, platelet count 212,000. INR 1.0. Chemistry: Troponin less than 0.92, GFR 60. ASSESSMENT AND PLAN At present the patient is being investigated for coagulation problems with a thrombin time, lupus anticoagulant, PTT-LA screen, DR VVT screen, LA dRVTT confirm, dRVTT mix, hexagonal phase confirm, protein-C activity and protein-S activity. I agree with continuing his anticoagulation at this time with warfarin and Lovenox. Thank you Dr. Kat and Dr. Elizabeth for asking us to see this very pleasant gentleman. Fabian Babcock MD, CP,[facility]/BT /6:15 PM /7:06 AM SAL
--- NOTE | 2016-09-21 07:53 | EKG ---
Date Performed: 09/20/2016 Time Performed: 10:09:44 PTAGE: 85 years EKG: Sinus rhythm with borderline 1st degree A-V block. Leftward axis Inferior infarct - age undetermined Possible ant erior infarct - age undetermined Low QRS voltages in precordial leads Since previous tracing, no sign ificant change noted Abnormal ECG PREVIOUS TRACING : 09/19/2016 16.14 DOCTOR: Tim Doll Interpretating Date/Time 09/21/2016 07:52:47
[2016-09-21 08:00] VITALS: BP 144/47; PULSE 59; PULSE 62; RESP 18; TEMP 97.7; O2SAT 90
[2016-09-21 08:16] LABS: INTERNATIONAL NORMALIZED RATIO 1.1 RATIO; PROTHROMBIN TIME - PATIENT 11.7 SEC (9.8-11.6)
[2016-09-21] MEDS: SODIUM CHLORIDE 0.9% FLUSH 5 ML FLUSH FLUSH SCH (09:00)
[2016-09-21 09:10] VITALS: O2SAT 96
[2016-09-21] MEDS: ASPIRIN EC 81 MG TABEC PO SCH (09:10)
[2016-09-21] MEDS: CARVEDILOL 3.125 MG TAB PO SCH (09:10)
[2016-09-21] MEDS: ENOXAPARIN SODIUM 120 MG/0.8 ML SYRINGE SQ SCH (09:11)
[2016-09-21] MEDS ORDERED: ENOX120P SQ (10:38)
[2016-09-21] MEDS ORDERED: COUM5TAB PO (10:38)
--- NOTE | 2016-09-21 10:39 | HHI.DCPOC ---
Discharge Care Plan Goals to Promote Your Health * To prevent worsening of your condition and complications * To maintain your health at the optimal level Directions to Meet Your Goals Take your medications as prescribed Follow your dietary instruction Follow activity as directed Keep your appointments as scheduled Take your immunizations and boosters as scheduled If your symptoms worsen call your PCP, if no PCP go to Urgent Care Center or Emergency Room Smoking is Dangerous to Your Health. Avoid second hand smoke Call the 24-hour hour crisis hotline for domestic abuse at Alaina Jones MD Sep 21, 2016 10:39
--- NOTE | 2016-09-21 10:43 | HHI.FF ---
Face to Face Verification Diagnosis: (1) Pulmonary embolism (2) Exertional dyspnea (3) Anticoagulated on Coumadin Physical Therapy Order: Evaluate and Treat Home Health Nursing Order: Medical education Signs/symptoms of disease process Medication education-adverse effect Nursing assessment with vital signs Instructions: nursing to check daily INR until therapeutic INR 2-3 I have seen patient Alex Estevez on 09/21/16. My clinical findings support the need for the requested home health care services because: Ltd mobility - disease progression Patient has SOB I certify that my clinical findings support that this patient is homebound because: Post-op weakness Unsteady gait/balance Alaina Jones MD Sep 21, 2016 10:43
[2016-09-21] MEDS ORDERED: LISI2.5T3 PO (10:46)
--- NOTE | 2016-09-21 10:49 | HHI.DS ---
Discharge Summary Admission Date Sep 19, 2016 at 18:14 Discharge Date: Sep 21, 2016 Admitting Diagnosis Pulmonary Embolism (1) Pulmonary embolism ICD Code: I26.99 Diagnosis: Principal (2) Exertional dyspnea ICD Code: R06.09 Diagnosis: Principal (3) Anticoagulated on Coumadin ICD Code: Z51.81 Diagnosis: Principal Procedures none Brief History - From Admission The patient is a very pleasant 85 yo male with PMH of hyperlipidemia, sleep apnea, insomnia, lumbar spinal stenosis with neurogenic claudication, obesity with BMI of 37.8. The patient complains of increasing shortness of breath over the past 2 weeks. He was seen by cardiology has done a recent echo and was told he doesn't have any cardiac problems. He was seen Dr. Kat pulmonology as outpatient, he had a normal pulmonary function test, and was sent to do a CTA. Patient had a CTA done today, was found with pulmonary embolism and was sent to the emergency room for further evaluation. Discussed with Dr. Kat's also came to see the patient in the emergency room, and with his primary care doctor Dr Garber. The patient is not using oxygen at home. His oxygen saturation on admission was 92% room air. He is satting well on 2 L nasal cannula at this time. Says he used to have CPAP at night, however he has not use it in a long time, he plans for a sleep study by Dr Martinez. Denies associated chest pain, nausea. No vomiting or diarrhea. Has constipation on and off. Shortness of breath is at rest and as well as on exertion, getting worse over the past 2 weeks. He has associated nonproductive cough on/off. No fever or chills. No wheezing. He denies having any swelling of his legs or erythema/rash. He also complaints of insomnia. Says he has severe lower back pain and he gets sweating at times when he has lower back pain. Says he takes norco for it. CBC/BMP: 09/20/16 0546 09/20/16 0546 Significant Findings Laboratory Tests Test 09/19/16 09/20/16 09/21/16 16:13 05:46 07:07 Monocytes (%) (Auto) 9.5 % (0.0-8.0) 11.2 % (0.0-8.0) Chloride Level 97 MEQ/L (98-107) Estimat Glomerular Filtration 66 ML/MIN (>89) 60 ML/MIN (>89) Rate Troponin I LESS THAN 0.02 NG/ML (0.02-0.05) Prothrombin Time 11.7 SEC (9.8-11.6) Imaging Last Impressions Abdomen/Pelvis CT 09/21/16 0000 Signed Impressions: Service Date/Time: Wednesday, September 21, 2016 00:23 - CONCLUSION: No suspicious CT findings in the abdomen or pelvis. Van Burris MD Lower Extremity Ultrasound 09/19/16 1624 Signed Impressions: Service Date/Time: Monday, September 19, 2016 17:14 - CONCLUSION: Negative for deep venous thrombosis. Jose M Saleem MD FACR PE at Discharge GENERAL: This is a very pleasant 85-year-old male, appearing younger than stated age, well-nourished, well-developed patient, in no apparent distress. BMI of 37.8. SKIN: No rashes, ecchymoses or lesions. Cool and dry. HEAD: Atraumatic. Normocephalic. No temporal or scalp tenderness. EYES: Pupils equal round and reactive. Extraocular motions intact. No scleral icterus. No injection or drainage. ENT: Nose without bleeding, purulent drainage or septal hematoma. Throat without erythema, tonsillar hypertrophy or exudate. Uvula midline. Airway patent. NECK: Trachea midline. No JVD or lymphadenopathy. Supple, nontender, no meningeal signs. CARDIOVASCULAR: Regular rate and rhythm without murmurs, gallops, or rubs. RESPIRATORY: Clear to auscultation. Breath sounds equal bilaterally. No wheezes , rales, or rhonchi. GASTROINTESTINAL: Abdomen soft, obese, non-tender, nondistended. No hepato- splenomegaly, or palpable masses. No guarding. MUSCULOSKELETAL: Extremities without clubbing, cyanosis, or edema. No joint tenderness, effusion, or edema noted. No calf tenderness. Negative Homans sign bilaterally. NEUROLOGICAL: Awake and alert. Cranial nerves II through XII intact. Motor and sensory grossly within normal limits. Five out of 5 muscle strength in all muscle groups. Normal speech. Pt update on day of discharge Feels much better. Less sob. No n/v/d/c. Sating well on room air now. Self administering lovenox inj. Cleared by consultants for DC. Discussed with the patient, nurse, family at bedside, consultants, case management. Hospital Course The patient is a very pleasant 85 yo male with PMH of hyperlipidemia, sleep apnea, insomnia, lumbar spinal stenosis with neurogenic claudication, obesity with BMI of 37.8 with sob, was sent by his pulm Dr Kat after CTA as OP showed PE: PE unknown etiology No family h/o clotting disorder, has a h/o precancerous lesion on his left chest surgically removed by derm per Dr Moscoso his PCP Consult his pulm Dr Kat, appreciate recommendations FOBT in the ED negative Start anticoagulation with Lovenox 130 mg IV BID BL LE Doppler US reviewed and negative for DVT Will consult Dr Jackson hem/onc specialist for further recommendations and work up. Appreciate recommendations. Check coags, protein C&S, check APL ab , lupus anticoagulant, cardiolipin antibody Malignancy work up with CT abd/pelvis negative , findings reviewed with the patient. Appreciate hem/onc recommendations. 2D ECHO reviewed EF of 35-40 %. Systolic CHF without exacerbation. Add small dose of lisinopril 2.5 md po daily. Consult Dr Babcock his cardiology doc, cleared patient for Dc to follow up as OP Other chronic medical problems stable at this time will resume home meds: hyperlipidemia, sleep apnea, insomnia, lumbar spinal stenosis with neurogenic claudication, obesity with BMI of 37.8. Patient improved. Cleared by consultants for DC. Patient is self injecting Lovenox , will bridge coumadin. He was DC home in fairly good condition. To follow up with PCP and consultants. Pt Condition on Discharge: Fair Discharge Disposition: Disch w/ Home Health Serv Discharge Time: > 30 minutes Discharge Instructions DIET: Follow Instructions for: Heart Healthy Diet Activities you can perform: Regular-No Restrictions Follow up Referrals: Cardiology - 2 Weeks with Fabian Babcock MD Oncology - 1 Week with Melissa Jackson MD PCP Follow-up - 2-3 Days Pulmonology - 1 Week with Bj Kat MD New Medications: Lisinopril (Lisinopril) 2.5 Mg Tab 2.5 MG PO DAILY #30 Ref 0 TAB Carvedilol (Coreg) 3.125 Mg Tab 3.125 MG PO Q12HR Blood Pressure Management #60 TAB Enoxaparin Inj (Lovenox Inj) 120 Mg/0.8 Ml Syr 120 MG SQ Q12H Blood Clot Prevention #30 INJECTION Warfarin (Coumadin) 5 Mg Tab 5 MG PO DAILY@1600 Blood Clot Prevention #30 TAB Continued Medications: Aspirin (Aspirin) 81 Mg Tabdr 81 MG PO DAILY TAB Bisacodyl DR (Dulcolax DR) 5 Mg Tabdr 5 MG PO DAILY PRN CONSTIPATION #30 Ref 0 TAB Hydrocodone-Acetaminophen (Lortab) 7.5-325 Mg Tab 1 TAB PO TID PRN PAIN Ref 0 TAB Lovastatin (Lovastatin) 40 Mg Tab 40 MG PO HS Cholesterol Management #30 Ref 0 TAB Alaina Jones MD Sep 21, 2016 10:49
--- NOTE | 2016-09-21 11:43 | PD.ONC.PN ---
Subjective Subjective Remarks Afebrile overnight. Patient resting comfortably without complaint. He denies pain. He is winded only with exertion. Objective Data Date Time Temp Pulse Resp B/P Pulse Ox O2 Delivery O2 Flow Rate FiO2 09/21/16 08:00 59 09/21/16 08:00 97.7 62 18 144/47 90 09/21/16 04:24 98.8 68 18 104/62 96 09/20/16 23:59 97.8 63 18 119/75 95 09/20/16 20:00 66 09/20/16 20:00 98.0 64 16 127/80 94 09/20/16 20:00 Nasal Cannula 2.00 09/20/16 16:00 98.3 66 20 123/68 96 09/20/16 12:00 97.4 64 16 152/80 96 09/21/16 09/21/16 09/21/16 07:00 15:00 23:00 Intake Total 120 ml Output Total 250 ml Balance -130 ml Result Diagram: 09/20/16 0546 09/20/16 0546 Laboratory Results Laboratory Tests Test 09/20/16 09/21/16 15:34 07:07 Prothrombin Time 11.5 SEC 11.7 SEC Prothromb Time International 1.0 RATIO 1.1 RATIO Ratio Imaging Studies Last 24 hours Impressions Abdomen/Pelvis CT 09/21/16 0000 Signed Impressions: Service Date/Time: Wednesday, September 21, 2016 00:23 - CONCLUSION: No suspicious CT findings in the abdomen or pelvis. Van Burris MD Administered Medications Medications (Trade) Dose Ordered Sig/Cherry Route PRN Reason Start Time Stop Time Status Last Admin Dose Admin IV Flush (NS Flush) 2 ml BID FLUSH 09/19/16 21:00 09/21/16 09:00 Carvedilol (Coreg) 3.125 mg Q12HR PO 09/19/16 21:00 09/21/16 09:10 Aspirin (Ecotrin Ec) 81 mg DAILY PO 09/20/16 09:00 09/21/16 09:10 Pravastatin Sodium (Pravachol) 40 mg HS PO 09/19/16 21:00 09/20/16 21:16 Zolpidem Tartrate (Ambien) 10 mg HS PRN PO insomnia 09/19/16 19:15 09/21/16 01:08 Enoxaparin Sodium (Lovenox Inj) 120 mg Q12H SQ 09/20/16 09:00 09/21/16 09:11 Warfarin Sodium (Coumadin) 5 mg DAILY@1600 PO 09/20/16 16:00 09/20/16 15:59 Objective Remarks GENERAL: Elderly female, sitting up in bed in nad. On 2L O2 via NC. SKIN: Warm and dry. HEAD: Normocephalic. EYES: No injection or drainage. NECK: Supple, trachea midline. CARDIOVASCULAR: Regular rate and rhythm RESPIRATORY: Breath sounds equal bilaterally. No accessory muscle use. GASTROINTESTINAL: Abdomen soft, non-tender, nondistended. EXTREMITIES: No cyanosis NEUROLOGICAL: awake and alert, normal speech. moving all extremities. Assessment/Plan Problem List: (1) Pulmonary embolism Status: Acute Plan: --on Lovenox bridge to coumadin --LE u/s negative for DVT Assessment 85y/o with newly diagnosed unprovoked pulmonary embolism. h/o sleep apnea insomnia lumbar stenosis with chronic back pain Obesity. Plan 1. continue lovenox bridge to coumadin 2. clear for d/c Attending Statement Discussed above with HALINA Perez. Problem Qualifiers (1) Pulmonary embolism: Qualified Code: I26.99 - Other pulmonary embolism without acute cor pulmonale, unspecified chronicity Anna Peters Sep 21, 2016 11:43 Melissa Jackson MD Sep 21, 2016 18:35
[2016-09-21 12:00] VITALS: BP 114/67; PULSE 68; RESP 18; TEMP 97.8; O2SAT 94
[2016-09-21] MEDS ORDERED: CARV3.125 PO (13:01)
--- NOTE | 2016-09-21 13:44 | PD.CARD.PN ---
Subjective Subjective Remarks The patient has SOB with exertion. Currently on nasal cannula. No pleuritic chest pain, lower extremity edema, coughing or palpitations. Objective Medications Current Medications Medications (Trade) Dose Ordered Sig/Cherry Route Start Time Stop Time Status Last Admin (NS Flush) 2 ml UNSCH PRN FLUSH 09/19/16 17:15 (NS Flush) 2 ml BID FLUSH 09/19/16 21:00 09/21/16 09:00 (Tylenol) 650 mg Q4H PRN PO 09/19/16 17:15 (Zofran Inj) 4 mg Q6H PRN IVP 09/19/16 17:15 (Compazine Supp) 25 mg Q12H PRN OK 09/19/16 17:15 (Dulcolax Supp) 10 mg DAILY PRN OK 09/19/16 17:15 (Milk Of Magnesia Liq) 30 ml Q12H PRN PO 09/19/16 17:15 (Senokot) 17.2 mg Q12H PRN PO 09/19/16 17:15 (Vasotec Inj) 2.5 mg Q6H PRN IV PUSH 09/19/16 17:30 (Catapres) 0.1 mg Q6H PRN PO 09/19/16 17:30 (Coreg) 3.125 mg Q12HR PO 09/19/16 21:00 09/21/16 09:10 (Ecotrin Ec) 81 mg DAILY PO 09/20/16 09:00 09/21/16 09:10 (Dulcolax Ec) 5 mg DAILY PRN PO 09/19/16 19:15 (Papillion 7.5-325 Mg) 1 tab TID PRN PO 09/19/16 19:15 (Pravachol) 40 mg HS PO 09/19/16 21:00 09/20/16 21:16 (Ambien) 10 mg HS PRN PO 09/19/16 19:15 09/21/16 01:08 (Lovenox Inj) 120 mg Q12H SQ 09/20/16 09:00 09/21/16 09:11 (Coumadin) 5 mg DAILY@1600 PO 09/20/16 16:00 09/20/16 15:59 Vital Signs / I&O Vital Signs Date Time Temp Pulse Resp B/P Pulse Ox O2 Delivery O2 Flow Rate FiO2 1/18/17 12:00 97.8 68 18 114/67 94 09/21/16 08:00 59 09/21/16 08:00 97.7 62 18 144/47 90 09/21/16 04:24 98.8 68 18 104/62 96 09/20/16 23:59 97.8 63 18 119/75 95 09/20/16 20:00 66 09/20/16 20:00 98.0 64 16 127/80 94 09/20/16 20:00 Nasal Cannula 2.00 09/20/16 16:00 98.3 66 20 123/68 96 I/O 09/20/16 09/20/16 09/20/16 09/21/16 09/21/16 09/21/16 07:00 15:00 23:00 07:00 15:00 23:00 Intake Total 600 ml 360 ml 120 ml Output Total 400 ml 300 ml 250 ml Balance -400 ml 600 ml 60 ml -130 ml Intake Oral 600 ml 360 ml 120 ml Output Urine Total 400 ml 300 ml 250 ml # Voids 2 2 # Bowel Movements 1 Physical Exam GENERAL: Very talkative, obese, male SKIN: Warm and dry. HEAD: Normocephalic. EYES: No scleral icterus. No injection or drainage. NECK: Supple, trachea midline. No JVD or lymphadenopathy. CARDIOVASCULAR: Regular rate and rhythm without murmurs, gallops, or rubs. RESPIRATORY: Breath sounds equal bilaterally. No accessory muscle use. Nasal cannula GASTROINTESTINAL: Abdomen soft, non-tender, nondistended. MUSCULOSKELETAL: No cyanosis, or edema. BACK: Nontender without obvious deformity. No CVA tenderness. Laboratory Laboratory Tests Test 09/20/16 09/21/16 15:34 07:07 Prothrombin Time 11.5 SEC 11.7 SEC Prothromb Time International 1.0 RATIO 1.1 RATIO Ratio Imaging Last 72 hours Impressions Abdomen/Pelvis CT 09/21/16 0000 Signed Impressions: Service Date/Time: Wednesday, September 21, 2016 00:23 - CONCLUSION: No suspicious CT findings in the abdomen or pelvis. Van Burris MD Lower Extremity Ultrasound 09/19/16 1624 Signed Impressions: Service Date/Time: Monday, September 19, 2016 17:14 - CONCLUSION: Negative for deep venous thrombosis. Jose M Saleem MD FACR Assessment and Plan Assessment and Plan Assessment New diagnosis of pulmonary embolism SOB Obesity Plan: Continue Coumadin/Lovenox bridge Pending hypercoagulable workup The patient is clear from a cardiac standpoint for discharge from a cardiac standpoint. Assessment and plan discussed with Digna Rubalcava Sep 21, 2016 13:44
[2016-09-21] MEDS: WARFARIN SOD 5 MG TAB PO SCH (16:38)
[2016-09-21 18:31] VITALS: O2SAT 94
[2016-09-22 13:55] LABS: THROMBIN TIME FOR LA ND sec (13-19)
--- NOTE | 2016-09-29 06:57 | MD ---
cc: RONNY MUSA R. STEVEN ADMISSION DATE: 09/19/2016 DISCHARGE DATE: 09/21/2016 HISTORY Mr. sEtevez is an 85-year-old white male whom I saw last week with chronic dyspnea and some increasing dyspnea on exertion recently. An outpatient CTA was positive for pulmonary embolism, so he was admitted to the hospital. He was begun on Lovenox and Coumadin. He has done well on that, but will need to have that titrated as an outpatient. Dr. Babcock saw him and a follow up echocardiogram, which had previously been normal, remains normal with no significant pulmonary hypertension, but a slightly reduced EF at 40%. Dopplers of his legs were negative and an abdominal pelvis CT to rule out occult malignancy was also negative. It appears that he has unprovoked pulmonary embolism, his weight being the primary factor. PLAN Plan is for discharge on home health. He will continue Lovenox as he transitions to Coumadin and Dr. Musa will be following up in the office to monitor the coagulation profile. He does have some laboratories still pending for a hypercoagulable state and they are not yet reported. PT/INR today on 09/21 is 11.7 and 1.1. He is feeling well. His breathing is a little better. We will do a walk test to see whether or not he needs home oxygen, but his saturations had been stable prior to admission. I will see him back in the office in six weeks and at that point, we will schedule a follow-up scan. MD KENDALL Barrett/FELICITA /1:06 PM /6:52 AM
== END 2016-09-21 18:36 | disposition home health service (06) | DRG 175 ==
LOC: NEPE 15:34 → NEDA 17:11 → OBSVTOIN 18:14 → N04B 21:31
PROVIDERS: ADMIT Hospitalist; ATTEND Hospitalist
DX: I26.99 Other pulmonary embolism without acute cor pulmonale (principal); G95.19 Other vascular myelopathies; R06.09 Other forms of dyspnea; I50.22 Chronic systolic (congestive) heart failure; E78.5 Hyperlipidemia, unspecified; E66.9 Obesity, unspecified; G47.33 Obstructive sleep apnea (adult) (pediatric); G47.00 Insomnia, unspecified; Z68.37 Body mass index [BMI] 37.0-37.9, adult; M48.06 Spinal stenosis, lumbar region; K59.00 Constipation, unspecified
CPT/HCPCS: 36415; 74177; 80048; 80053; 82565; 82948; 83880; 84484; 84520; 85025; 85303; 85306; 85610; 85613; 85730; 86147; 93005; 93306; 93970; 94620; J1650; Q9963; Q9967

== ENCOUNTER → 2016-11-04 | Outpatient (CLI) | payer MEDICARE, OTHER ==
[~2016-11-04] MED LIST changes: +ASPI1TAB69 PO; -ASPI81TA82 PO; -BISA5TAB PO; +CARV3.125 PO; -CENTTAB9 PO; +COUM5TAB PO; +DULC5TAB PO; +ENOX120P SQ; -GABA300C3 PO; +LISI2.5T3 PO; +LOVA40TA PO; -MEVA40TA PO; -MISC1CAP PO; -MOBI15TA PO; -ZOLP10TA3 PO
[2016-11-04 10:11] LABS: HEMATOCRIT 45.8 % (39.0-51.0); MEAN CELL VOLUME 89.5 FL (80.0-100.0); MEAN CORPUSCULAR HEMOGLOBIN 30.4 PG (27.0-34.0); MEAN CORPUSCULAR HGB CONC 33.9 % (32.0-36.0); PLATELET COUNT 216 TH/MM3 (150-450); RED BLOOD COUNT 5.12 MIL/MM3 (4.50-5.90); RED CELL DISTRIBUTION WIDTH 12.6 % (11.6-17.2); REVIEW FLAG FINAL; WHITE BLOOD COUNT 6.8 TH/MM3 (4.0-11.0)
[2016-11-04 10:44] LABS: ANION GAP 8 MEQ/L (5-15); AST (GOT) 25 U/L (15-37); BICARBONATE 29.7 MEQ/L (21.0-32.0); BLOOD UREA NITROGEN 20 MG/DL (7-18); CHLORIDE 102 MEQ/L (98-107); GLOMERULAR FILTRATION RATE 59 ML/MIN (>89); GLUCOSE,FASTING 109 MG/DL (74-99); POTASSIUM 4.2 MEQ/L (3.5-5.1); SODIUM (NA) 140 MEQ/L (136-145)
[2016-11-04 10:54] LABS: ALKALINE PHOSPHATASE 50 U/L (45-117); ALT (GPT) 36 U/L (12-78); HDL CHOLESTEROL 41.6 MG/DL (40.0-60.0); LDL CHOLESTEROL 98 MG/DL (0-99); TOTAL BILIRUBIN ADULT 0.8 MG/DL (0.2-1.0)
== END ==
LOC: CLAB 09:46
PROVIDERS: ATTEND Family Medicine
DX: G60.3 Idiopathic progressive neuropathy (principal); M48.06 Spinal stenosis, lumbar region; G47.30 Sleep apnea, unspecified; E78.4 Other hyperlipidemia; E78.5 Hyperlipidemia, unspecified; E66.3 Overweight; Z68.41 Body mass index [BMI] 40.0-44.9, adult
CPT/HCPCS: 36415; 80053; 80061; 84443; 85027

== ENCOUNTER → 2017-03-15 | Outpatient (CLI) | payer MEDICARE, OTHER ==
[2017-03-15 08:07] LABS: HEMATOCRIT 47.7 % (39.0-51.0); MEAN CELL VOLUME 92.1 FL (80.0-100.0); MEAN CORPUSCULAR HEMOGLOBIN 29.7 PG (27.0-34.0); MEAN CORPUSCULAR HGB CONC 32.3 % (32.0-36.0); PLATELET COUNT 198 TH/MM3 (150-450); RED BLOOD COUNT 5.17 MIL/MM3 (4.50-5.90); RED CELL DISTRIBUTION WIDTH 13.3 % (11.6-17.2); REVIEW FLAG FINAL; WHITE BLOOD COUNT 6.9 TH/MM3 (4.0-11.0)
[2017-03-15 08:37] LABS: ANION GAP 8 MEQ/L (5-15); AST (GOT) 22 U/L (15-37); BICARBONATE 26.9 MEQ/L (21.0-32.0); BLOOD UREA NITROGEN 14 MG/DL (7-18); CHLORIDE 102 MEQ/L (98-107); GLOMERULAR FILTRATION RATE 70 ML/MIN (>89); GLUCOSE,FASTING 103 MG/DL (74-99); POTASSIUM 4.1 MEQ/L (3.5-5.1); SODIUM (NA) 137 MEQ/L (136-145)
[2017-03-15 08:38] LABS: ALT (GPT) 29 U/L (12-78)
[2017-03-15 08:47] LABS: ALKALINE PHOSPHATASE 56 U/L (45-117); LDL CHOLESTEROL 157 MG/DL (0-99); TOTAL BILIRUBIN ADULT 0.7 MG/DL (0.2-1.0)
== END ==
LOC: CLAB 07:27
PROVIDERS: ATTEND Family Medicine
DX: I26.99 Other pulmonary embolism without acute cor pulmonale (principal); M48.06 Spinal stenosis, lumbar region; G47.30 Sleep apnea, unspecified; E78.4 Other hyperlipidemia; E66.3 Overweight; Z79.01 Long term (current) use of anticoagulants; Z12.5 Encounter for screening for malignant neoplasm of prostate
CPT/HCPCS: 36415; 80053; 80061; 84153; 84443; 85027

== ENCOUNTER 2017-07-22 12:19 | Emergency (ER) | payer MEDICARE, OTHER ==
[~2017-07-22] VITALS: Ht 182.9 cm; Wt 127.0 kg
[2017-07-22 12:22] VITALS: BP 138/78; PULSE 76; RESP 17; TEMP 99.2; O2SAT 93
--- NOTE | 2017-07-22 12:52 | PD ---
HPI Chief Complaint: Respiratory Distress Time Seen by Provider: 12:35 Travel History International Travel<30 days: No Contact w/Intl Traveler<30days: No Traveled to known affect area: No History of Present Illness HPI 86-year-old male complains of shortness of breath. Patient states that he has productive cough for the past several days. Patient contact his physician Dr. Musa yesterday and a [facility] was called in for him. Patient states that he has increasing shortness of breath today. Patient denies any headache. Patient denies any chest pain. Patient states that he has shortness of breath. Patient denies abdominal pain. Patient denies any fever chills. Patient denies any lower extremity pain. Patient has history of PE and on Coumadin. Patient has history of hypertension, peripheral neuropathy and hyperlipidemia. PFSH Past Medical History Hx Anticoagulant Therapy: Yes (warfarin) Arthritis: Yes Asthma: No Heart Rhythm Problems: No Cancer: No Cardiovascular Problems: No High Cholesterol: Yes Chemotherapy: No Chest Pain: No Congestive Heart Failure: No COPD: No Cerebrovascular Accident: No Diabetes: No Diminished Hearing: Yes (BILAT HEARING AIDES) Endocrine: No Genitourinary: No Immune Disorder: No Musculoskeletal: Yes (CHRONIC BACK PAIN) Neurologic: No Psychiatric: No Reproductive: No Respiratory: Yes (history of PE) Sleep Apnea: No Past Surgical History Abdominal Surgery: Yes (cholicysectomy) Body Medical Devices: PERIPHERAL NEUROPATHY Cardiac Surgery: No Cholecystectomy: Yes Ear Surgery: No Endocrine Surgery: No Eye Surgery: No Genitourinary Surgery: No Gynecologic Surgery: No Oral Surgery: No Thoracic Surgery: No Social History Alcohol Use: No Tobacco Use: No Substance Use: No Allergies-Medications (Allergen,Severity, Reaction): Coded Allergies: No Known Allergies (Verified Adverse Reaction, Unknown, 07/22/17) Reported Meds & Prescriptions Reported Meds & Active Scripts Active Coreg (Carvedilol) 3.125 Mg Tab 3.125 Mg PO Q12HR Lisinopril 2.5 Mg Tab 2.5 Mg PO DAILY Coumadin (Warfarin) 5 Mg Tab 5 Mg PO DAILY@1600 Reported Hydrocodone-Acetaminophen 7.5-300 Mg Tab 1 Tab PO Q4H PRN Zolpidem (Zolpidem Tartrate) 10 Mg Tab 10 Mg PO HS PRN Centrum (Multiple Vitamins W/ Minerals) 1 Chew 1 Tab CHEW DAILY Lovastatin 40 Mg Tab 40 Mg PO HS Dulcolax DR (Bisacodyl) 5 Mg Tabdr 5 Mg PO DAILY PRN Review of Systems General / Constitutional: No: Fever Eyes: No: Visual changes HENT: No: Headaches Cardiovascular: No: Chest Pain or Discomfort Respiratory: Positive: Cough, Shortness of Breath Gastrointestinal: No: Abdominal Pain Genitourinary: No: Dysuria Musculoskeletal: No: Pain Skin: No Rash Neurologic: No: Weakness Psychiatric: No: Depression Endocrine: No: Polydipsia Hematologic/Lymphatic: No: Easy Bruising Physical Exam Narrative GENERAL: Well-nourished, well-developed patient. SKIN: Focused skin assessment warm/dry. HEAD: Normocephalic. EYES: No scleral icterus. No injection or drainage. NECK: Supple, trachea midline. No JVD or lymphadenopathy. CARDIOVASCULAR: Regular rate and rhythm without murmurs, gallops, or rubs. RESPIRATORY: Breath sounds equal bilaterally. No accessory muscle use. GASTROINTESTINAL: Abdomen soft, non-tender, nondistended. MUSCULOSKELETAL: No cyanosis, or edema. BACK: Nontender without obvious deformity. No CVA tenderness. Neurologic exam normal. Data Data Last Documented VS Vital Signs Date Time Temp Pulse Resp B/P (MAP) Pulse Ox O2 Delivery O2 Flow Rate FiO2 07/22/17 12:58 96 Room Air 07/22/17 12:57 78 18 07/22/17 12:22 99.2 Orders Orders Electrocardiogram (07/22/17 12:43) Complete Blood Count With Diff (07/22/17 12:43) Comprehensive Metabolic Panel (07/22/17 12:43) Prothrombin Time / Inr (Pt) (07/22/17 12:43) Act Partial Throm Time (Ptt) (07/22/17 12:43) D-Dimer (07/22/17 12:43) Influenzae A/B Antigen (07/22/17 12:43) Iv Access Insert/Monitor (07/22/17 12:43) Ecg Monitoring (07/22/17 12:43) Oximetry (07/22/17 12:43) Ct Pulmonary Angiogram (07/22/17 12:43) Iohexol 350 Inj (Omnipaque 350 Inj) (07/22/17 14:43) Labs Laboratory Tests Test 07/22/17 13:02 White Blood Count 10.2 TH/MM3 Red Blood Count 5.04 MIL/MM3 Hemoglobin 15.7 GM/DL Hematocrit 46.4 % Mean Corpuscular Volume 92.1 FL Mean Corpuscular Hemoglobin 31.1 PG Mean Corpuscular Hemoglobin Concent 33.8 % Red Cell Distribution Width 13.4 % Platelet Count 201 TH/MM3 Mean Platelet Volume 7.9 FL Neutrophils (%) (Auto) 78.5 % Lymphocytes (%) (Auto) 11.0 % Monocytes (%) (Auto) 9.3 % Eosinophils (%) (Auto) 0.8 % Basophils (%) (Auto) 0.4 % Neutrophils # (Auto) 8.0 TH/MM3 Lymphocytes # (Auto) 1.1 TH/MM3 Monocytes # (Auto) 0.9 TH/MM3 Eosinophils # (Auto) 0.1 TH/MM3 Basophils # (Auto) 0.0 TH/MM3 CBC Comment DIFF FINAL Differential Comment Prothrombin Time 32.1 SEC Prothromb Time International Ratio 2.8 RATIO Activated Partial Thromboplast Time 46.7 SEC D-Dimer Quantitative (PE/DVT) 0.27 MG/L FEU Blood Urea Nitrogen 11 MG/DL Creatinine 0.99 MG/DL Random Glucose 110 MG/DL Total Protein 7.3 GM/DL Albumin 3.3 GM/DL Calcium Level 8.9 MG/DL Alkaline Phosphatase 54 U/L Aspartate Amino Transf (AST/SGOT) 24 U/L Alanine Aminotransferase (ALT/SGPT) 34 U/L Total Bilirubin 1.2 MG/DL Sodium Level 138 MEQ/L Potassium Level 4.2 MEQ/L Chloride Level 103 MEQ/L Carbon Dioxide Level 28.1 MEQ/L Anion Gap 7 MEQ/L Estimat Glomerular Filtration Rate 72 ML/MIN [facility] Medical Decision Making Medical Screen Exam Complete: Yes Emergency Medical Condition: Yes Interpretation(s) Last Impressions CT Angiography 07/22/17 1243 Signed Impressions: Service Date/Time: Saturday, July 22, 2017 14:39 - CONCLUSION: 1. Coronary artery calcification 2. No evidence for pulmonary embolism. 3. Scattered tiny lung nodules. [address] chest recommended. 4. Left lower lobe atelectasis with possible mucous plugging and peribronchial thickening. Juanjose Wilkes MD 1529 PM. CBC within normal limit. CMP within normal limit. INR 2.8. Differential Diagnosis Differential diagnosis including URI, bronchitis, pneumonia, PE, pneumothorax. Narrative Course 86-year-old male with coughing and shortness of breath. History of PE. Patient is on Coumadin. Diagnosis Primary Impression: Bronchitis Patient Instructions: General Instructions Additional Instructions: Continue with [facility] as directed. Follow-up with personal physician. Return if worse. Med/Other Pt SpecificInfo: No Change to Meds Disposition: 01 DISCHARGE HOME Condition: Stable Raymundo Ochoa MD Jul 22, 2017 12:52
[2017-07-22 12:58] VITALS: O2SAT 96
[2017-07-22] MEDS ORDERED: HYDR-2376 PO (13:08)
[2017-07-22] MEDS ORDERED: CENTCHW4 CHEW (13:08)
[2017-07-22] MEDS ORDERED: ZOLP10TA3 PO (13:08)
[2017-07-22 13:21] LABS: BASOPHIL % 0.4 % (0.0-2.0); EOSINOPHIL # 0.1 TH/MM3 (0-0.4); EOSINOPHIL % 0.8 % (0.0-4.0); HEMATOCRIT 46.4 % (39.0-51.0); HEMO FLAGS DIFF FINAL; LYMPHOCYTE # 1.1 TH/MM3 (1.0-4.8); MEAN CELL VOLUME 92.1 FL (80.0-100.0); MEAN CORPUSCULAR HEMOGLOBIN 31.1 PG (27.0-34.0); MEAN CORPUSCULAR HGB CONC 33.8 % (32.0-36.0); MONO % 9.3 % (0.0-8.0); NEUT % 78.5 % (16.0-70.0); PLATELET COUNT 201 TH/MM3 (150-450); RED BLOOD COUNT 5.04 MIL/MM3 (4.50-5.90); RED CELL DISTRIBUTION WIDTH 13.4 % (11.6-17.2); WHITE BLOOD COUNT 10.2 TH/MM3 (4.0-11.0)
[2017-07-22 13:32] LABS: APTT (PATIENT) 46.7 SEC (24.3-30.1); INTERNATIONAL NORMALIZED RATIO 2.8 RATIO; PROTHROMBIN TIME - PATIENT 32.1 SEC (9.8-11.6)
[2017-07-22 13:39] LABS: ALKALINE PHOSPHATASE 54 U/L (45-117); TOTAL BILIRUBIN ADULT 1.2 MG/DL (0.2-1.0)
[2017-07-22 14:10] LABS: ALT (GPT) 34 U/L (12-78); ANION GAP 7 MEQ/L (5-15); AST (GOT) 24 U/L (15-37); BICARBONATE 28.1 MEQ/L (21.0-32.0); BLOOD UREA NITROGEN 11 MG/DL (7-18); CHLORIDE 103 MEQ/L (98-107); GLOMERULAR FILTRATION RATE 72 ML/MIN (>89); POTASSIUM 4.2 MEQ/L (3.5-5.1); SODIUM (NA) 138 MEQ/L (136-145)
[2017-07-22] MEDS ORDERED: IOHEXOL 350 MG/ML 10 ML VIAL (for RAD DIAG) IVCONTRAST ONE (14:43)
--- NOTE | 2017-07-22 14:51 | RADRPT ---
EXAM DATE/TIME: 07/22/2017 14:39 [facility] COMPARISON: No previous studies available for comparison. INDICATIONS : Mid chest pain; recent pulmonary emboli. IV CONTRAST: 70 cc Omnipaque 350 (iohexol) IV RADIATION DOSE: 23.08 CTDIvol (mGy) MEDICAL HISTORY : Hypertension. SURGICAL HISTORY : Cholecystectomy. ENCOUNTER: Initial ACUITY: 1 day PAIN SCALE: 5/10 LOCATION: middle chest TECHNIQUE: Volumetric scanning of the chest was performed using a pulmonary embolism protocol MIP images were re constructed. Using automated exposure control and adjustment of the mA and/or kV according to patien t size, radiation dose was kept as low as reasonably achievable to obtain optimal diagnostic quality images. DICOM format image data is available electronically for review and comparison. Follow-up recommendations for detected pulmonary nodules are based at a minimum on nodule size and pa tient risk factors according to Fleischner Society Guidelines. FINDINGS: Non-calcified scattered pulmonary nodules are identified bilaterally. Coronary artery calcification i s noted. No pathologically enlarged lymph nodes. There is mild volume loss of left lower lobe with pe ribronchial thickening and possible mucous plugging left lower lobe bronchi. No evidence of pulmonary embolus. CONCLUSION: 1. Coronary artery calcification 2. No evidence for pulmonary embolism. 3. Scattered tiny lung nodules. [address] chest recommended. 4. Left lower lobe atelectasis with possible mucous plugging and peribronchial thickening. Juanjose Wilkes MD on July 22, 2017 at 14:48 Board Certified Radiologist. This report was verified electronically.
--- NOTE | 2017-07-22 16:01 | EKG ---
Date Performed: 07/22/2017 Time Performed: 12:49:24 PTAGE: 86 years EKG: Sinus rhythm WITH FIRST DEGREE AV BLOCK WITH OCCASIONAL SUPRAVENTRICULAR PREMATURE COMPLEXES LOW QRS VOLTAGE IN P RECORDIAL LEADS INFERIOR MYOCARDIAL INFARCTION Compared to prior tracing no significant change ABNORM AL ECG PREVIOUS TRACING : 09/20/16 @ 1009 DOCTOR: Rishi Mckeon Interpretating Date/Time 07/22/2017 16:00:37
== END 2017-07-22 16:27 | disposition home or self-care (01) ==
LOC: NEPE 12:19
DX: J40 Bronchitis, not specified as acute or chronic (principal); I10 Essential (primary) hypertension; G62.9 Polyneuropathy, unspecified; R94.31 Abnormal electrocardiogram [ECG] [EKG]; Z79.01 Long term (current) use of anticoagulants
CPT/HCPCS: 71275; 80053; 85025; 85379; 85610; 85730; 87804; 93005; 99285; Q9967

== ENCOUNTER → 2017-12-11 | Outpatient (CLI) | payer MEDICARE, OTHER ==
[~2017-12-11] MED LIST changes: -ASPI1TAB69 PO; +CENTCHW4 CHEW; -ENOX120P SQ; +HYDR-2376 PO; -HYDR-3534 PO; +ZOLP10TA3 PO
[2017-12-11 09:19] LABS: HEMATOCRIT 47.1 % (39.0-51.0); MEAN CELL VOLUME 91.7 FL (80.0-100.0); MEAN CORPUSCULAR HEMOGLOBIN 31.1 PG (27.0-34.0); MEAN CORPUSCULAR HGB CONC 33.9 % (32.0-36.0); PLATELET COUNT 202 TH/MM3 (150-450); RED BLOOD COUNT 5.14 MIL/MM3 (4.50-5.90); RED CELL DISTRIBUTION WIDTH 13.7 % (11.6-17.2); WHITE BLOOD COUNT 8.6 TH/MM3 (4.0-11.0)
[2017-12-11 10:00] LABS: ALBUMIN 3.3 GM/DL (3.4-5.0); ALT (GPT) 40 U/L (12-78); AST (GOT) 27 U/L (15-37); BICARBONATE 27.9 MEQ/L (21.0-32.0); BLOOD UREA NITROGEN 15 MG/DL (7-18); CALCIUM 8.8 MG/DL (8.5-10.1); CHLORIDE 103 MEQ/L (98-107); CHOLESTEROL 152 MG/DL (120-200); CREATININE 1.08 MG/DL (0.60-1.30); GLOMERULAR FILTRATION RATE 65 ML/MIN (>89); SODIUM (NA) 138 MEQ/L (136-145); TRIGLYCERIDES 150 MG/DL (42-150)
[2017-12-11 10:01] LABS: GLUCOSE,FASTING 105 MG/DL (74-99)
[2017-12-11 10:11] LABS: ALKALINE PHOSPHATASE 56 U/L (45-117); CHOLESTEROL/ HDL RATIO 3.52 RATIO; HDL CHOLESTEROL 43.1 MG/DL (40.0-60.0); LDL CHOLESTEROL 79 MG/DL (0-99); TOTAL PROTEIN 7.4 GM/DL (6.4-8.2)
== END ==
LOC: CLAB 08:06
PROVIDERS: ATTEND Family Medicine
DX: E78.2 Mixed hyperlipidemia (principal); I25.10 Atherosclerotic heart disease of native coronary artery without angina pectoris; R06.02 Shortness of breath; I26.99 Other pulmonary embolism without acute cor pulmonale; Z79.01 Long term (current) use of anticoagulants; Z68.39 Body mass index [BMI] 39.0-39.9, adult
CPT/HCPCS: 36415; 80053; 80061; 84443; 85027